=== PATIENT | male | born 1960 | race Caucasian/White ===

== ENCOUNTER 2018-02-16 19:01 | Emergency (ER) | payer BC ==
[2018-02-16 20:15] LABS: ABSOLUTE LYMPHOCYTES (AUTO) 1.3 10^3/uL (0.5-4.7); ABSOLUTE MONOCYTES (AUTO) 0.3 10^3/uL (0.1-1.4); BASOPHILS % (AUTO) 0.2 % (0-2); HEMATOCRIT 40.6 % (37.9-51.0); HEMOGLOBIN 13.7 g/dL (13.5-17.0); LYMPHOCYTES % (AUTO) 13.9 % (13-45); MEAN CORPUSCULAR HEMOGLOBIN 29.1 pg (27.0-33.4); MEAN CORPUSCULAR HGB CONC 33.7 g/dL (32.0-36.0); MEAN CORPUSCULAR VOLUME 86 fl (80-97); MONOCYTES % (AUTO) 3.3 % (3-13); PLATELET COUNT 331 10^3/uL (150-450); RED BLOOD COUNT 4.71 10^6/uL (4.35-5.55); RED CELL DISTRIBUTION WIDTH 14.2 % (11.5-14.0); SEGMENTED NEUTROPHILS % (AUTO) 82.6 % (42-78); TOTAL CELLS COUNTED % (AUTO) 100 %; WHITE BLOOD COUNT 9.7 10^3/uL (4.0-10.5)
[2018-02-16 20:28] LABS: ALANINE AMINOTRANSFERASE 42 U/L (21-72); ALBUMIN 4.3 g/dL (3.5-5.0); ALKALINE PHOSPHATASE 83 U/L (38-126); ANION GAP 11 (5-19); ASPARTATE AMINO TRANSFERASE 54 U/L (17-59); BILIRUBIN,DIRECT 0.4 mg/dL (0.0-0.4); BILIRUBIN,TOTAL 0.6 mg/dL (0.2-1.3); BLOOD UREA NITROGEN 27 mg/dL (7-20); CALCIUM 9.1 mg/dL (8.4-10.2); CARBON DIOXIDE 29 mmol/L (22-30); CHLORIDE 103 mmol/L (98-107); GLUCOSE 108 mg/dL (75-110); POTASSIUM 4.5 mmol/L (3.6-5.0); SODIUM 142.7 mmol/L (137-145); TOTAL PROTEIN 7.5 g/dL (6.3-8.2)
--- NOTE | 2018-02-16 20:43 | RADIOLOGY REPORT (SQ) ---
EXAM DESCRIPTION: ABDOMEN 2 VIEWS COMPLETED DATE/TIME: 02/16/2018 8:30 pm REASON FOR STUDY: abdominal pain COMPARISON: None. NUMBER OF VIEWS: Two views. TECHNIQUE: Supine and erect/decubitus radiographic images of the abdomen acquired. LIMITATIONS: None. FINDINGS: FREE AIR: None. No abnormal gas collections. LUNG BASES: Clear. BOWEL GAS PATTERN: Gas scattered throughout the colon. Scattered air-fluid levels, also predominantl y within colon. No suggestion of small bowel obstruction. No significant stool retention. CALCIFICATIONS: No suspicious calcifications. SOFT TISSUES: No gross mass or suggestion of organomegaly. HARDWARE: None in the abdomen. BONES: No acute fracture. No worrisome bone lesions. OTHER: No other significant finding. IMPRESSION: 1. Scattered gas and fluid predominantly throughout the colon. No suggestion of small b owel obstruction. TECHNICAL DOCUMENTATION: JOB ID: [id number] [employer]- All Rights Reserved Reading location - IP/workstation name: [email or web address]
[2018-02-16] MEDS ORDERED: CIPROFLOXACIN HCL 500 MG TABLET PO ONE (21:14)
--- NOTE | 2018-02-16 21:16 | ER Document Report ---
ED General - General Chief Complaint: Bloody Stools Stated Complaint: BLOOD IN STOOL Time Seen by Provider: 02/16/18 19:44 Notes: Patient is a 57 year old male without chronic medical problems, no use of anti- coagulation who presents with 2 bloody bowel movements over the past 12 hours. Patient reports that he had loose stool mixed in with large quantities of blood on 2 separate occasions today prompting him to come to the emergency department. He notes an associated generalized, intermittent, cramping abdominal pain. He denies that anything seems to improve or worsen his symptoms. He denies any history of bloody diarrhea in the past. He has not seen his primary doctor regarding today's concerns. He notes multiple people have been sick with diarrhea in his home but nobody else has had bloody diarrhea. He also notes that he was started on clindamycin 2 days ago for an infected left elbow bursitis which has now mostly resolved but he does continue take the antibiotics at this time. TRAVEL OUTSIDE OF THE [place] IN LAST 30 DAYS: No - Related Data Allergies/Adverse Reactions: No Known Allergies Allergy (Verified 02/16/18 19:02) Past Medical History - General Information source: Patient - Social History Smoking Status: Never Smoker Frequency of alcohol use: None Drug Abuse: None Lives with: Spouse/Significant other Family History: Reviewed & Not Pertinent - Past Medical History Cardiac Medical History: Reports: Hx Hypercholesterolemia Denies: Hx Coronary Artery Disease, Hx Heart Attack, Hx Hypertension Pulmonary Medical History: Reports: Hx Pneumonia - 5-6 years ago Denies: Hx Asthma, Hx Bronchitis, Hx COPD Neurological Medical History: Denies: Hx Cerebrovascular Accident, Hx Seizures GI Medical History: Reports: Hx Hiatal Hernia Musculoskeltal Medical History: Reports Hx Arthritis Past Surgical History: Reports: Hx Abdominal Surgery - colon resection, Hx Bowel Surgery, Hx Kidney (Renal Surgery) - L kidney, Hx Orthopedic Surgery - neck, L ankle - Immunizations Hx Diphtheria, Pertussis, Tetanus Vaccination: Yes Review of Systems - Review of Systems Notes: Constitutional: Negative for fever. HENT: Negative for sore throat. Eyes: Negative for visual changes. Cardiovascular: Negative for chest pain. Respiratory: Negative for shortness of breath. Gastrointestinal: Positive for abdominal cramping and bloody diarrhea Genitourinary: Negative for dysuria. Musculoskeletal: Negative for back pain. Skin: Negative for rash. Neurological: Negative for headaches, weakness or numbness. 10 point ROS negative except as marked above and in HPI. Physical Exam - Vital signs Vitals: Temp Pulse Resp BP Pulse Ox 98.0 F 73 16 121/87 H 98 02/16/18 19:21 18 19:21 18 19:21 18 19:21 02/16/18 19:21 Interpretation: Normal Notes: PHYSICAL EXAMINATION: GENERAL: Well-appearing, well-nourished and in no acute distress. HEAD: Atraumatic, normocephalic. EYES: Pupils equal round and reactive to light, extraocular movements intact, sclera anicteric, conjunctiva are normal. ENT: nares patent, oropharynx clear without exudates. Moderately dry mucous membranes. NECK: Normal range of motion, supple without lymphadenopathy LUNGS: Breath sounds clear to auscultation bilaterally and equal. No wheezes rales or rhonchi. HEART: Regular rate and rhythm without murmurs ABDOMEN: Soft, nontender, normoactive bowel sounds. No guarding, no rebound. No masses appreciated. Rectal: Bright red blood on digital rectal examination with a mixture of brown stool. EXTREMITIES: Normal range of motion, no pitting or edema. No cyanosis. NEUROLOGICAL: No focal neurological deficits. Moves all extremities spontaneously and on command. PSYCH: Normal mood, normal affect. SKIN: Warm, Dry, normal turgor, no rashes or lesions noted. Course - Re-evaluation Re-evalutation: 02/16/18 21:14 Patient presents with 2 bloody bowel movements mixed with loose stool since earlier this morning. He is otherwise very well in appearance, no focal abdominal tenderness rebound or guarding in any location. Rectal examination does show bright red blood per rectum. Initial hemoglobin is within normal limits. No tachycardia or hypotension suggest significant blood loss and patient is only had 2 bowel movements in the past 12 hours. Given the absence of any localized abdominal pain low clinical suspicion for acute diverticulitis , regional colitis although an infectious colitis versus possible antibiotic induced diarrhea as patient was recently started on clindamycin on the differential. Diverticular bleeding versus polyp bleeding also are considerations. Given the patient has bright red blood on rectal examination he will remain in the emergency department had a recheck CBC to ensure that he has not had any significant bleeding that would warrant a hospitalization. Will also send a stool for culture and C. difficile testing. 02/16/18 23:58 Patient has not had any additional bowel movements so no stool studies can be sent. His repeat hemoglobin 4 hours after the initial shows a drop of less than one-point of hemoglobin. Patient has remained otherwise hemodynamically within normal limits current heart rate 75, blood pressure 115/81. I will empirically treat the patient with a short course of ciprofloxacin in case this is an infectious colitis causing associated dysentery. I have emphasized with the patient that he needs to urgently follow up with his primary care doctor and a GI physician for a colonoscopy. At this time will discharge with return precautions and follow-up recommendations. Verbal discharge instructions given a the bedside and opportunity for questions given. Medication warnings reviewed. Patient is in agreement with this plan and has verbalized understanding of return precautions and the need for primary care follow-up in the next 24-72 hours. - Vital Signs Vital signs: Temp Pulse Resp BP Pulse Ox 98.0 F 73 14 113/85 97 02/16/18 19:21 02/16/18 19:21 02/16/18 22:01 02/16/18 22:01 02/16/18 22:01 - Laboratory Result Diagrams: 02/16/18 23:38 02/16/18 19:49 Laboratory results interpreted by me: 02/16/18 02/16/18 02/16/18 19:49 19:49 23:38 WBC 10.9 H Hgb 12.9 L Hct 37.4 L RDW 14.2 H 14.1 H Seg Neutrophils % 82.6 H BUN 27 H - Diagnostic Test Radiology reviewed: Image reviewed, Reports reviewed Radiology results interpreted by me: 02/16/18 23:59 Two-view abdomen: No evidence of obstruction or perforation Discharge - Discharge Clinical Impression: Bloody diarrhea, Abdominal cramping Condition: Good Disposition: HOME, SELF-CARE Additional Instructions: Your symptoms may be due to an infection or bleeding from diverticulosis. Your blood counts have remained acceptably stable during your time here in the emergency department and your vitals have remained within normal limits. Please return to the emergency department immediately if you repeated large bloody bowel movements, your abdominal pain worsens, you have persistent vomiting, or have any other symptoms that are worrisome to you. Prescriptions: Ciprofloxacin HCl [Cipro 500 mg Tablet] 500 mg PO BID #6 tablet Referrals: ERNIE CHRIS MD [ACTIVE STAFF] - Follow up tomorrow VIRGINIA ECHEVARRIA FNP [Primary Care Provider] - Follow up tomorrow
[2018-02-16 23:47] LABS: HEMATOCRIT 37.4 % (37.9-51.0); HEMOGLOBIN 12.9 g/dL (13.5-17.0); MEAN CORPUSCULAR HEMOGLOBIN 29.4 pg (27.0-33.4); MEAN CORPUSCULAR HGB CONC 34.6 g/dL (32.0-36.0); MEAN CORPUSCULAR VOLUME 85 fl (80-97); PLATELET COUNT 313 10^3/uL (150-450); RED CELL DISTRIBUTION WIDTH 14.1 % (11.5-14.0); WHITE BLOOD COUNT 10.9 10^3/uL (4.0-10.5)
[2018-02-17 00:26] VITALS: BP 112/91
== END 2018-02-17 00:26 | disposition home or self-care (01) ==
LOC: ER 19:01
DX: K92.1 Melena (principal); R19.7 Diarrhea, unspecified; R10.9 Unspecified abdominal pain
CPT/HCPCS: 36415; 74019; 80053; 85025; 85027; 99284

== ENCOUNTER 2020-05-06 18:15 | Observation (INO) | payer BC ==
[2020-05-06] MEDS ORDERED: ASPIRIN 81 MG TABLET, CHEWABLE PO ONE (19:02)
--- NOTE | 2020-05-06 19:06 | ER Document Report ---
ED Medical Screen (RME) - General Chief Complaint: Chest Pain Stated Complaint: CHEST PAIN Time Seen by Provider: 05/06/20 18:55 Primary Care Provider: VIRGINIA ECHEVARRIA FNP [Primary Care Provider] - Follow up as needed Mode of Arrival: Ambulatory Information source: Patient Notes: HPI; 59-year-old male presents the emergency room complaining of nagging chest tightness to the left side of his chest for the past 4 days. Denies any nausea, vomiting, no diaphoresis. Not taking any medications for symptoms. No trauma or injury. No heavy lifting, no previous cardiac history PE: Alert and oriented x3. Lungs: Clear to auscultation without rales, rhonchi, wheezes. Heart: Regular rate and rhythm without murmurs, rubs, gallops. Chest wall not tender to palpation. I have greeted and performed a rapid initial assessment of this patient. A comprehensive ED assessment and evaluation of the patient, analysis of test results and completion of the medical decision making process will be conducted by additional ED providers. I have specifically instructed the patient or family members with the patient to immediately return to any nursing staff should anything change in the patient's condition or with their chief complaint. TRAVEL OUTSIDE OF THE [place] IN LAST 30 DAYS: No - Related Data Allergies/Adverse Reactions: No Known Allergies Allergy (Verified 02/16/18 19:02) Past Medical History - Social History Frequency of alcohol use: Occasional - Past Medical History Cardiac Medical History: Reports: Hx Hypercholesterolemia Denies: Hx Coronary Artery Disease, Hx Heart Attack, Hx Hypertension Pulmonary Medical History: Reports: Hx Pneumonia - 5-6 years ago Denies: Hx Asthma, Hx Bronchitis, Hx COPD Neurological Medical History: Denies: Hx Cerebrovascular Accident, Hx Seizures Renal/ Medical History: Denies: Hx Peritoneal Dialysis GI Medical History: Reports: Hx Hiatal Hernia Musculoskeltal Medical History: Reports Hx Arthritis Past Surgical History: Reports: Hx Abdominal Surgery - colon resection, Hx Bowel Surgery, Hx Kidney (Renal Surgery) - L kidney, Hx Orthopedic Surgery - neck, L ankle - Immunizations Hx Diphtheria, Pertussis, Tetanus Vaccination: Yes Physical Exam - Vital signs Vitals: Temp Pulse Resp BP Pulse Ox 98.3 F 69 16 122/85 98 05/06/20 18:24 05/06/20 18:24 05/06/20 18:24 05/06/20 18:24 05/06/20 18:24 Course - Vital Signs Vital signs: Temp Pulse Resp BP Pulse Ox 98.3 F 69 16 122/85 98 05/06/20 18:24 05/06/20 18:24 05/06/20 18:24 05/06/20 18:24 05/06/20 18:24 Doctor's Discharge - Discharge Referrals: VIRGINIA ECHEVARRIA FNP [Primary Care Provider] - Follow up as needed
[2020-05-06 19:31] LABS: ABSOLUTE EOSINOPHILS # (AUTO) 0.4 10^3/uL (0.0-0.6); ABSOLUTE MONOCYTES (AUTO) 0.6 10^3/uL (0.1-1.4); ABSOLUTE NEUT (AUTO) 4.3 10^3/uL (1.7-8.2); BASOPHILS % (AUTO) 0.6 % (0-2); EOSINOPHILS % (AUTO) 5.4 % (0-6); HEMATOCRIT 42.6 % (37.9-51.0); HEMOGLOBIN 14.7 g/dL (13.5-17.0); LYMPHOCYTES % (AUTO) 27.7 % (13-45); MEAN CORPUSCULAR HGB CONC 34.5 g/dL (32.0-36.0); MEAN CORPUSCULAR VOLUME 87 fl (80-97); MONOCYTES % (AUTO) 7.6 % (3-13); PLATELET COUNT 223 10^3/uL (150-450); SEGMENTED NEUTROPHILS % (AUTO) 58.7 % (42-78); TOTAL CELLS COUNTED % (AUTO) 100 %; WHITE BLOOD COUNT 7.3 10^3/uL (4.0-10.5)
--- NOTE | 2020-05-06 19:35 | RADIOLOGY REPORT (SQ) ---
EXAM DESCRIPTION: CHEST 2 VIEWS IMAGES COMPLETED DATE/TIME: 05/06/2020 7:25 pm REASON FOR STUDY: chest pain COMPARISON: Two-view chest 01/04/2014, 10/13/2013 EXAM PARAMETERS: NUMBER OF VIEWS: two views TECHNIQUE: Digital Frontal and Lateral radiographic views of the chest acquired. RADIATION DOSE: NA LIMITATIONS: none FINDINGS: LUNGS AND PLEURA: No opacities, masses or pneumothorax. No pleural effusion. MEDIASTINUM AND HILAR STRUCTURES: No masses or contour abnormalities. HEART AND VASCULAR STRUCTURES: Heart normal size. No evidence for failure. BONES: No acute findings. HARDWARE: None in the chest. OTHER: No other significant finding. IMPRESSION: NO ACUTE RADIOGRAPHIC FINDING IN THE CHEST. TECHNICAL DOCUMENTATION: JOB ID: [id number] [employer]- All Rights Reserved Reading location - IP/workstation name: [email or web address]
[2020-05-06 19:52] LABS: ALBUMIN 4.2 g/dL (3.5-5.0); ALKALINE PHOSPHATASE 92 U/L (38-126); ASPARTATE AMINO TRANSFERASE 27 U/L (17-59); BILIRUBIN,TOTAL 0.8 mg/dL (0.2-1.3); BLOOD UREA NITROGEN 19 mg/dL (7-20); CALCIUM 8.6 mg/dL (8.4-10.2); CARBON DIOXIDE 29 mmol/L (22-30); CREATINE KINASE 131 U/L (55-170); GLUCOSE 88 mg/dL (75-110)
[2020-05-06 19:58] LABS: CHLORIDE 104 mmol/L (98-107)
[2020-05-06 20:00] LABS: ANION GAP 4 (5-19)
[2020-05-06 20:02] LABS: CREATINE KINASE MB 1.68 ng/mL (<4.55)
[2020-05-06 20:03] LABS: TROPONIN I < 0.012 ng/mL
--- NOTE | 2020-05-06 21:02 | EKG REPORT ---
SEVERITY:- ABNORMAL ECG - SINUS RHYTHM LAD, CONSIDER LEFT ANTERIOR FASCICULAR BLOCK : Confirmed by: Alphonso Martell MD 06-May-2020 21:01:43
--- NOTE | 2020-05-06 22:13 | ER Document Report ---
ED General - General Chief Complaint: Chest Pain Stated Complaint: CHEST PAIN Time Seen by Provider: 05/06/20 18:55 Primary Care Provider: VIRGINIA ECHEVARRIA FNP [Primary Care Provider] - Follow up as needed Mode of Arrival: Ambulatory Information source: Patient Notes: Patient is a 59-year-old male presenting to the emergency department chief complaint of chest pain patient states the chest pain is been ongoing for the past couple of days it actually woke him out of sleep initially. Patient states that he would just try and wait it out however today when the chest pain was at its worst patient complained of left neck and left shoulder pain diaphoresis and decrease in vision. Patient denies travel history trauma history sick contacts patient takes no medications does not smoke. TRAVEL OUTSIDE OF THE [place] IN LAST 30 DAYS: No - HPI Onset: Last week Onset/Duration: Persistent, Worse Quality of pain: Throbbing Severity: Moderate Pain Level: 4 Associated symptoms: Chest pain, Sweating, Weakness Exacerbated by: Denies Relieved by: Denies Similar symptoms previously: No Recently seen / treated by doctor: No - Related Data Allergies/Adverse Reactions: No Known Allergies Allergy (Verified 02/16/18 19:02) Past Medical History - General Information source: Patient - Social History Smoking Status: Never Smoker Chew tobacco use (# tins/day): No Frequency of alcohol use: Occasional Drug Abuse: None Lives with: Family Family History: Reviewed & Not Pertinent Patient has suicidal ideation: No Patient has homicidal ideation: No - Past Medical History Cardiac Medical History: Reports: Hx Hypercholesterolemia Denies: Hx Coronary Artery Disease, Hx Heart Attack, Hx Hypertension Pulmonary Medical History: Reports: Hx Pneumonia - 5-6 years ago Denies: Hx Asthma, Hx Bronchitis, Hx COPD Neurological Medical History: Denies: Hx Cerebrovascular Accident, Hx Seizures Renal/ Medical History: Denies: Hx Peritoneal Dialysis GI Medical History: Reports: Hx Hiatal Hernia Musculoskeletal Medical History: Reports Hx Arthritis Past Surgical History: Reports: Hx Abdominal Surgery - colon resection, Hx Bowel Surgery, Hx Kidney (Renal Surgery) - L kidney, Hx Orthopedic Surgery - neck, L ankle - Immunizations Hx Diphtheria, Pertussis, Tetanus Vaccination: Yes Review of Systems - Review of Systems Notes: REVIEW OF SYSTEMS: CONSTITUTIONAL : Denies fever, chills, or sweats. Denies recent illness. EENT: Denies eye, ear, throat, or mouth pain or symptoms. Denies nasal or sinus congestion. CARDIOVASCULAR: Per HPI RESPIRATORY: Denies cough, cold, or chest congestion. Denies shortness of breath, difficulty breathing, or wheezing. GASTROINTESTINAL: Denies abdominal pain. Denies nausea, vomiting, or diarrhea. Denies constipation. GENITOURINARY: Denies difficulty urinating, painful urination, burning, frequency, or blood in urine. MUSCULOSKELETAL: Denies neck or back pain or joint pain or swelling. SKIN: Denies rash or skin lesions. HEMATOLOGIC : Denies easy bruising or bleeding. NEUROLOGICAL: Denies altered mental status or loss of consciousness. Denies headache. Denies weakness or paralysis or loss of use of either side. Denies problems with gait or speech. Denies sensory or motor loss. PSYCHIATRIC: Denies suicidal or homicidal ideations 10 Systems are negative unless otherwise specified above Physical Exam - Vital signs Vitals: Temp Pulse Resp BP Pulse Ox 98.3 F 69 16 122/85 98 05/06/20 18:24 05/06/20 18:24 05/06/20 18:24 05/06/20 18:24 05/06/20 18:24 - Notes Notes: PHYSICAL EXAMINATION: GENERAL: Well-appearing, well-nourished and in no acute distress. HEAD: Atraumatic, normocephalic. EYES: Pupils equal round and reactive to light, extraocular movements intact, sclera anicteric, conjunctiva are normal. ENT: nares patent, oropharynx clear without exudates. Moist mucous membranes. NECK: Normal range of motion, supple without lymphadenopathy, no appreciable JVD LUNGS: Lungs clear to auscultation bilaterally and equal. No wheezes rales or rhonchi. HEART: Regular rate and rhythm without murmurs ABDOMEN: Soft, nontender, normal bowel sounds. No guarding, no rebound. No masses appreciated. EXTREMITIES: Active full range of motion, no pitting or edema. No cyanosis. 2+ pulses x4 NEUROLOGICAL: No focal neurological deficits. Moves all extremities spontaneously and on command. SKIN: Warm, Dry, and intact. Normal turgor, no rashes or lesions noted. Course - Re-evaluation Re-evalutation: 05/06/20 22:23 Patient still complaining of 3/5 chest pain however is resting comfortably otherwise normal respiratory rate. 07/09/20 22:35 Patient has received nitroglycerin 1 inch to the anterior chest wall. Patient has already received aspirin per protocol in triage. Chest x-ray demonstrates no acute findings. Currently waiting on laboratory results and repeat troponin. 05/07/20 00:24 Patient has been maintained in the emergency department on a alarm security or surveillance monitor wh ile present. Patient has been reevaluated several times while in the emergency department and no signs of decompensation have been noted. After evaluation of laboratory EKG and radiologic studies I see no signs of pneumonia, pneumothorax, acute myocardial infarction, dissection or pulmonary embolism, there are no signs of rib fractures, no signs of acute coronary syndrome or at this time I feel with the patient's symptoms and age as well as some indications of cardiac risk factors the patient should be admitted for serial enzymes and stress test. I have discussed these results with the patient answered all questions and patient is agreeable with admission and cardiac rule out. - Vital Signs Vital signs: Temp Pulse Resp BP Pulse Ox 98.3 F 69 16 122/85 99 05/06/20 18:24 05/06/20 18:24 05/06/20 18:24 05/06/20 18:24 05/06/20 21:58 - Laboratory Result Diagrams: 05/06/20 19:16 05/06/20 19:16 Laboratory results interpreted by me: 05/06/20 19:16 Anion Gap 4 L - Diagnostic Test Radiology reviewed: Reports reviewed - EKG Interpretation by [facility] EKG shows normal: Sinus rhythm Rate: Normal Rhythm: NSR - EKG is interpreted by id shows sinus rhythm rate of 74 bpm of note on the monitor the patient is ranging between 45 and 75 but obviously a normal sinus rhythm prior EKG from June 23, 2015 showed sinus bradycardia rate of 49 bpm. When compared to previous EKG there are: Changes noted Discharge - Discharge Clinical Impression: Chest pain Qualifiers: Chest pain type: precordial pain Qualified Code(s): R07.2 - Precordial pain Condition: Stable Disposition: ADMITTED OBSERVATION Admitting Provider: Julissa (Hospitalist) Unit Admitted: Telemetry Referrals: VIRGINIA ECHEVARRIA FNP [Primary Care Provider] - Follow up as needed
[2020-05-06] MEDS ORDERED: NITROGLYCERIN 2% OINTMENT 1 GM PACKET TP ONE (22:23)
[2020-05-07] MEDS ORDERED: MAGNESIUM HYDROXIDE SUSP 30 ML UDCUP PO PRN (00:55)
[2020-05-07] MEDS ORDERED: MAG HYDROX/AL HYDROX/SIMETH SUSP 30 ML UDCUP PO PRN (00:55)
[2020-05-07] MEDS ORDERED: ONDANSETRON HCL INJ/PF 4 MG/2 ML SDV IV PRN (00:55)
[2020-05-07] MEDS ORDERED: GUAIFENESIN SYRP 200 MG/10 ML UDC PO PRN (01:01)
[2020-05-07] MEDS ORDERED: HYDRALAZINE HCL INJ/PF 20 MG/1 ML SDV IV PRN (01:01)
[2020-05-07] MEDS ORDERED: LORAZEPAM INJ 2 MG/1 ML VIAL IV PRN (01:01)
[2020-05-07] MEDS ORDERED: MORPHINE SULFATE 10 MG/ML INJ IV PRN ×4 (01:01→01:57)
[2020-05-07] MEDS ORDERED: ACETAMINOPHEN 325 MG TABLET PO PRN (01:01)
--- NOTE | 2020-05-07 04:21 | PDOC H&P ---
History of Present Illness Admission Date/PCP: 05/07/2020 00:30 JOHN PEREZ Patient complains of: Chest pain History of Present Illness: ELIU COLLAZO III is a 59 year old male who presented to the emergency room with a one-week history of chest pain. He admits the sudden onset of a constant tightness in the left anterior chest 1 week ago waking him from sleep. The pain has been moderately severe since onset, but today begin to radiate into his left neck and left shoulder and this change was accompanied by diaphoresis and a sense of decreased vision. Chest pain has been associated with generalized weakness. He denies other accompanying or associated signs and symptoms. Denies prior similar episodes. He has not identified any aggravating or ameliorating factors for his chest pain. In the emergency room he was found to have an EKG which was negative for acute myocardial ischemia or injury. His initial troponins were within normal limits. He was subsequently admitted to observation status on the telemetry unit for further evaluation and treatment. Past Medical History Cardiac Medical History: Reports: Hyperlipidema Denies: Atrial Fibrillation, Coronary Artery Disease, Myocardial Infarction, Hypertension Pulmonary Medical History: Reports: Pneumonia - 5-6 years ago Denies: Asthma, Bronchitis, Chronic Obstructive Pulmonary Disease (COPD) EENT Medical History: Denies: Cataracts, Ears - Hearing aids Neurological Medical History: Denies: Hemorrhagic CVA, Ischemic CVA, Seizures Endocrine Medical History: Denies: Diabetes Mellitus Type 1, Diabetes Mellitus Type 2, Hyperthyroidism, Hypothyroidism, Obesity Renal/ Medical History: Reports: Other - Benign prostatic hyperplasia Denies: Chronic Kidney Disease, Nephrolithiasis Malignancy Medical History: Reports: None GI Medical History: Reports: Hiatal Hernia Denies: Cirrhosis, Crohn's Disease, Hepatitis, Peptic Ulcer Disease, Ulcerative Colitis Musculoskeltal Medical History: Reports: Arthritis Denies: Gout Skin Medical History: Reports: Other - Lipomas Denies: Eczema, Psoriasis Psychiatric Medical History: Denies: Alcohol Dependency, Substance Abuse, Tobacco Dependency Traumatic Medical History: Reports: None Hematology: Denies: Anemia, Bleeding Tendencies Infectious Medical History: Reports: Methicillin-Resistant Staph Aureus Past Surgical History Past Surgical History: Reports: Herniorrhaphy - Right inguinal, Orthopedic Surgery - neck, L ankle, Other - Lipoma removed right hip x2, colonoscopy Social History Information Source: Patient Lives with: Family Smoking Status: Never Smoker Electronic Cigarette use?: No Frequency of Alcohol Use: Social Hx Recreational Drug Use: No Drugs: None Hx Prescription Drug Abuse: No - Advance Directive Resuscitation Status: Full Code Surrogate healthcare decision maker:: Osman Seals Family History Family History: DM, Malignancy - Malignant melanoma. denies: CAD, Hypertension Parental Family History Reviewed: Yes Children Family History Reviewed: No Sibling(s) Family History Reviewed.: Yes Medication/Allergy Home Medications: Aspirin [Ecotrin] 81 mg PO QHS 06/23/15 Simvastatin [Zocor 5 mg Tablet] 5 mg PO QHS 06/23/15 Tamsulosin HCl [Flomax 0.4 mg Cap.sr] 0.4 mg PO QHS 06/23/15 Oxycodone HCl/Acetaminophen [Percocet 5-325 mg Tablet] 1 - 2 tab PO ASDIR PRN #15 tablet 06/30/15 Ciprofloxacin HCl [Cipro 500 mg Tablet] 500 mg PO BID #6 tablet 02/17/18 Allergies/Adverse Reactions: No Known Allergies Allergy (Verified 02/16/18 19:02) Review of Systems Constitutional: PRESENT: as per HPI, weakness. ABSENT: chills, fever(s) Eyes: PRESENT: as per HPI, other - Decreased vision. ABSENT: visual disturbances Ears: ABSENT: hearing changes, other - Ear pain Nose, Mouth, and Throat: ABSENT: headache(s), sore throat Cardiovascular: PRESENT: as per HPI, chest pain. ABSENT: dyspnea on exertion, palpitations Respiratory: ABSENT: cough, dyspnea Gastrointestinal: ABSENT: abdominal pain, constipation, diarrhea, nausea, vomiting Genitourinary: ABSENT: dysuria, hematuria Musculoskeletal: ABSENT: back pain, joint swelling Integumentary: PRESENT: as per HPI, diaphoresis. ABSENT: pruritus, rash Neurological: ABSENT: confusion, convulsions, focal weakness, memory loss, syncope Psychiatric: ABSENT: anxiety, depression Endocrine: ABSENT: cold intolerance, heat intolerance Hematologic/Lymphatic: ABSENT: easy bleeding, easy bruising Allergic/Immunologic: ABSENT: seasonal rhinorrhea Physical Exam Vital Signs: Temp Pulse Resp BP Pulse Ox 98.3 F 69 16 122/85 99 05/06/20 18:24 05/06/20 18:24 05/06/20 18:24 05/06/20 18:24 05/06/20 21:58 Intake & Output 05/05/20 05/06/2020 23:59 23:59 23:59 Weight 85.275 kg General appearance: PRESENT: no acute distress, cooperative, well-developed Head exam: PRESENT: atraumatic, normocephalic Eye exam: PRESENT: conjunctiva pink. ABSENT: conjunctival injection, scleral icterus Ear exam: PRESENT: normal external ear exam. ABSENT: bleeding, drainage Mouth exam: PRESENT: dry mucosa, neck supple Neck exam: ABSENT: thyromegaly, tracheal deviation Respiratory exam: PRESENT: clear to auscultation lia, symmetrical, unlabored Cardiovascular exam: PRESENT: RRR. ABSENT: clicks, gallop, rubs Pulses: PRESENT: normal radial pulses, normal dorsalis pedis pul Vascular exam: PRESENT: normal capillary refill. ABSENT: pallor GI/Abdominal exam: PRESENT: normal bowel sounds, soft Rectal exam: PRESENT: deferred Extremities exam: ABSENT: joint swelling, pedal edema Musculoskeletal exam: ABSENT: deformity, dislocation Neurological exam: PRESENT: alert, oriented to person, oriented to place, oriented to time, oriented to situation, CN II-XII grossly intact. ABSENT: motor sensory deficit Psychiatric exam: PRESENT: appropriate affect, normal mood Skin exam: PRESENT: dry, intact, warm. ABSENT: jaundice, rash, urticaria Results Laboratory Results: 05/06/20 19:16 05/06/20 19:16 05/06/20 05/06/20 19:16 19:16 WBC 7.3 RBC 4.90 Hgb 14.7 Hct 42.6 MCV 87 MCH 30.0 MCHC 34.5 RDW 14.0 Plt Count 223 Seg Neutrophils % 58.7 Sodium 137.3 Potassium 4.0 Chloride 104 Carbon Dioxide 29 Anion Gap 4 L BUN 19 Creatinine 1.04 Est GFR ( Amer) > 60 Glucose 88 Calcium 8.6 Total Bilirubin 0.8 AST 27 Alkaline Phosphatase 92 Total Protein 7.0 Albumin 4.2 05/06/20 05/06/20 05/06/20 19:16 19:16 22:15 Creatine Kinase 131 CK-MB (CK-2) 1.68 Troponin I < 0.012 < 0.012 Impressions: Chest X-Ray 05/06/20 19:01 IMPRESSION: NO ACUTE RADIOGRAPHIC FINDING IN THE CHEST. Assessment and Plan - Diagnosis (1) Chest pain Qualifiers: Chest pain type: precordial pain Qualified Code(s): R07.2 - Precordial pain Is this a current diagnosis for this admission?: Yes (2) Hyperlipidemia Qualifiers: Hyperlipidemia type: unspecified Qualified Code(s): E78.5 - Hyperlipidemia, unspecified Is this a current diagnosis for this admission?: Yes (3) Benign prostatic hyperplasia Is this a current diagnosis for this admission?: Yes (4) Mechanical venous thromboembolism (VTE) prophylaxis in place Is this a current diagnosis for this admission?: Yes - Plan Summary Summary: Patient is admitted to observation status on the telemetry unit where he will receive routine supportive home symptomatic cares. Dr. Ramirez has been consulted for cardiology and a Cardiolite stress test has been ordered for later this morning. Serial cardiac enzymes will be performed. A thyroid profile and a lipid profile will be obtained. CBCs, metabolic profiles, magnesium levels and additional laboratory and/or radiographic evaluations will be obtained as appropriate. Patient will use Nitrol 2% ointment 1 inch applied every 6 hours as initiated in the emergency room. Patient will have morphine sulfate 2 to 4 mg IV every 2 hours as needed for pain control. He will have Ativan 1 mg IV every 4 hours as needed for anxiety or restlessness. He will enjoy a cardiac diet after his stress test has been performed. - Time Time Spent with patient: 15-24 minutes Medications reviewed and adjusted accordingly: Yes Anticipated discharge: Home Within: within 24 hours - Inpatient Certification Based on my medical assessment, after consideration of the patient's comorbidities, presenting symptoms, or acuity I expect that the services needed warrant INPATIENT care.: No I certify that my determination is in accordance with my understanding of Medicare's requirements for reasonable and necessary INPATIENT services [42 CFR 412.3e].: No
[2020-05-07 05:01] LABS: TRIGLYCERIDES 49 mg/dL (<150)
[2020-05-07 05:09] LABS: CREATINE KINASE MB 1.21 ng/mL (<4.55)
[2020-05-07 05:10] LABS: CHOLESTEROL 210.04 mg/dL (0-200)
[2020-05-07 05:11] LABS: DIRECT LDL 146 mg/dL (<100); TROPONIN I < 0.012 ng/mL
[2020-05-07] MEDS: NITROGLYCERIN 2% OINTMENT 1 GM PACKET TP SCH ×2 (06:08→14:41)
[2020-05-07] MEDS: HEPARIN SOD (PORCINE) 5,000 UNIT/ML 1 ML VIAL SUBCUT SCH ×2 (06:15→14:42)
--- NOTE | 2020-05-07 08:02 | PDOC CONSULTATION ---
Consultation Consult Date: 05/07/20 Attending physician:: MONICA BARONE Provider Consulted: MALKA SAGASTUME Consult reason:: Chest pain History of Present Illness Admission Date/PCP: 05/07/20 01:05 JOHN PEREZ History of Present Illness: ELIU COLLAZO III is a 59 year old male without known medical problems and remote smoker who is consulted to our service for evaluation of chest pain. The patient had chest pain for 4 days, in a constant fashion, it was sharp in nature, localized to an area right above his left breast, made worse with strenuous physical activities, associated with diaphoresis and tunnel vision, with radiation to the left arm and neck but no palpitations, syncope, shortness of breath. He had been hemodynamically stable and without recurrence of his index chest pain since admission and ruled out for ACS with 3 sets of negative troponins. He feels well this morning and denies new symptoms. Physical exam on 05/07/2020: GENERAL: Pleasant and conversational. Oriented x3 with normal mood. Not in acute distress. Well groomed and well developed. HEENT: Normocephalic, atraumatic. Pupils equal. Sclerae anicteric. Oropha rynx moist. NECK: No JVD. No carotid bruits. LUNGS: Clear to auscultation bilaterally. Normal respiratory effort without the use of accessory muscles or intercostal retractions. CARDIOVASCULAR: Regular rate and rhythm, normal S1 and S2 without murmurs, rubs, or gallops. PMI not displaced. ABDOMEN: No masses or tenderness to palpation. No bruit. No splenomegaly or hepatomegaly. No abdominal aorta bruit noted. EXTREMITIES: No edema, no cyanosis, no clubbing. +2 pulses femoral and pedal pulses bilaterally. SKIN: No lesions or rashes. MUSCULOSKELETAL: No chest tenderness to palpation. NEUROLOGIC: Nonfocal. No gross sensory or motor deficits bilateral upper or lower extremities. Past Medical History Cardiac Medical History: Reports: Hyperlipidema Denies: Atrial Fibrillation, Coronary Artery Disease, Myocardial Infarction, Hypertension Pulmonary Medical History: Reports: Pneumonia - 5-6 years ago Denies: Asthma, Bronchitis, Chronic Obstructive Pulmonary Disease (COPD) EENT Medical History: Denies: Cataracts, Ears - Hearing aids Neurological Medical History: Denies: Hemorrhagic CVA, Ischemic CVA, Seizures Endocrine Medical History: Denies: Diabetes Mellitus Type 1, Diabetes Mellitus Type 2, Hyperthyroidism, Hypothyroidism, Obesity Renal/ Medical History: Reports: Other - Benign prostatic hyperplasia Denies: Chronic Kidney Disease, Nephrolithiasis Malignancy Medical History: Reports: None GI Medical History: Reports: Hiatal Hernia Denies: Cirrhosis, Crohn's Disease, Hepatitis, Peptic Ulcer Disease, Ulcerative Colitis Musculoskeltal Medical History: Reports: Arthritis Denies: Gout Skin Medical History: Reports: Other - Lipomas Denies: Eczema, Psoriasis Psychiatric Medical History: Denies: Alcohol Dependency, Depression, Substance Abuse, Tobacco Dependency Traumatic Medical History: Reports: None Hematology: Denies: Anemia, Bleeding Tendencies Infectious Medical History: Reports: None, Methicillin-Resistant Staph Aureus Past Surgical History Past Surgical History: Reports: Herniorrhaphy - Right inguinal, Orthopedic Surgery - neck, L ankle, Other - Lipoma removed right hip x2, colonoscopy Social History Lives with: Family Smoking Status: Never Smoker Cigarettes Packs Per Day: 0.2 Electronic Cigarette use?: No Number of Years Smokin Last Time Smoked: 1984 Frequency of Alcohol Use: Social Hx Recreational Drug Use: No Drugs: None Hx Prescription Drug Abuse: No - Advance Directive Resuscitation Status: Full Code Family History Family History: DM, Malignancy - Malignant melanoma. denies: CAD, Hypertension Parental Family History Reviewed: Yes Children Family History Reviewed: Yes Sibling(s) Family History Reviewed.: Yes Medication/Allergy Home Medications: Aspirin [Ecotrin] 81 mg PO QHS 06/23/15 Simvastatin [Zocor 5 mg Tablet] 5 mg PO QHS 06/23/15 Tamsulosin HCl [Flomax 0.4 mg Cap.sr] 0.4 mg PO QHS 06/23/15 Oxycodone HCl/Acetaminophen [Percocet 5-325 mg Tablet] 1 - 2 tab PO ASDIR PRN #15 tablet 06/30/15 Ciprofloxacin HCl [Cipro 500 mg Tablet] 500 mg PO BID #6 tablet 02/17/18 Allergies/Adverse Reactions: No Known Allergies Allergy (Verified 02/16/18 19:02) Physical Exam Vital Signs: Temp Pulse Resp BP Pulse Ox 97.5 F 50 L 16 100/65 99 05/07/20 04:19 05/07/20 04:19 05/07/20 04:19 05/07/20 04:19 05/07/20 04:19 Intake & Output 05/06/20 05/07/2020 06:59 06:59 06:59 Intake Total 0 Balance 0 Weight 83.6 kg Results Laboratory Results: 05/06/20 19:16 05/06/20 19:16 05/06/20 05/06/20 05/07/20 19:16 19:16 03:52 WBC 7.3 RBC 4.90 Hgb 14.7 Hct 42.6 MCV 87 MCH 30.0 MCHC 34.5 RDW 14.0 Plt Count 223 Seg Neutrophils % 58.7 Sodium 137.3 Potassium 4.0 Chloride 104 Carbon Dioxide 29 Anion Gap 4 L BUN 19 Creatinine 1.04 Est GFR ( Amer) > 60 Glucose 88 Calcium 8.6 Total Bilirubin 0.8 AST 27 Alkaline Phosphatase 92 Total Protein 7.0 Albumin 4.2 Triglycerides 49 Cholesterol 210.04 H LDL Cholesterol Direct 146 H VLDL Cholesterol 10.0 HDL Cholesterol 49 TSH 05/07/20 03:52 WBC RBC Hgb Hct MCV MCH MCHC RDW Plt Count Seg Neutrophils % Sodium Potassium Chloride Carbon Dioxide Anion Gap BUN Creatinine Est GFR ( Amer) Glucose Calcium Total Bilirubin AST Alkaline Phosphatase Total Protein Albumin Triglycerides Cholesterol LDL Cholesterol Direct VLDL Cholesterol HDL Cholesterol TSH 4.40 05/06/20 05/06/20 05/06/20 19:16 19:16 22:15 Creatine Kinase 131 CK-MB (CK-2) 1.68 Troponin I < 0.012 < 0.012 05/07/20 05/07/20 03:52 03:52 Creatine Kinase 102 CK-MB (CK-2) 1.21 Troponin I < 0.012 Impressions: Chest X-Ray 05/06/20 19:01 IMPRESSION: NO ACUTE RADIOGRAPHIC FINDING IN THE CHEST. 05/06/20 19:16 05/06/20 19:16 MCV 87 fl (80-97) 05/06/20 19:16 MCH 30.0 pg (27.0-33.4) 05/06/20 19:16 MCHC 34.5 g/dL (32.0-36.0) 05/06/20 19:16 RDW 14.0 % (11.5-14.0) 05/06/20 19:16 Seg Neutrophils % 58.7 % (42-78) 05/06/20 19:16 Chloride 104 mmol/L (98-107) 05/06/20 19:16 Carbon Dioxide 29 mmol/L (22-30) 05/06/20 19:16 Anion Gap 4 (5-19) L 05/06/20 19:16 Est GFR ( Amer) > 60 (>60) 05/06/20 19:16 Glucose 88 mg/dL (75-110) 05/06/20 19:16 Calcium 8.6 mg/dL (8.4-10.2) 05/06/20 19:16 Total Bilirubin 0.8 mg/dL (0.2-1.3) 05/06/20 19:16 AST 27 U/L (17-59) 05/06/20 19:16 Alkaline Phosphatase 92 U/L (38-126) 05/06/20 19:16 Total Protein 7.0 g/dL (6.3-8.2) 05/06/20 19:16 Albumin 4.2 g/dL (3.5-5.0) 05/06/20 19:16 Triglycerides 49 mg/dL (<150) 05/07/20 03:52 Cholesterol 210.04 mg/dL (0-200) H 05/07/20 03:52 LDL Cholesterol Direct 146 mg/dL (<100) H 05/07/20 03:52 VLDL Cholesterol 10.0 mg/dL (10-31) 05/07/20 03:52 HDL Cholesterol 49 mg/dL (>40) 05/07/20 03:52 TSH 4.40 uIU/mL (0.47-4.68) 05/07/20 03:52 05/06/20 05/06/20 05/06/20 19:16 19:16 22:15 Creatine Kinase 131 CK-MB (CK-2) 1.68 Troponin I < 0.012 < 0.012 05/07/20 05/07/20 03:52 03:52 Creatine Kinase 102 CK-MB (CK-2) 1.21 Troponin I < 0.012 Current Medication List Generic Name Dose Route Start Last Admin Trade Name Freq PRN Reason Stop Dose Admin Acetaminophen 650 mg 05/07/20 01:01 Tylenol 325 Mg Tablet PO 06/06/20 01:00 Q4HP PRN For headache, pain or fever Al Hydrox/Mg Hydrox/Simethicone 30 ml 05/07/20 00:55 Maalox Plus Susp 30 Udcup PO 06/06/20 00:54 Q6HP PRN [facility] Docusate Sodium 100 mg 05/07/20 10:00 Colace 100 Mg Capsule PO 06/06/20 09:59 BID [facility] Famotidine 20 mg 05/07/20 10:00 Pepcid 20 Mg Tablet PO 06/06/20 09:59 Q12 [facility] Guaifenesin 200 mg 05/07/20 01:01 Robitussin Syrup 200 Mg/10 Ml Ud Cup PO 06/06/20 01:00 Q4HP PRN COUGH Heparin Sodium (Porcine) 5,000 unit 05/07/20 06:00 05/07/20 06:15 Heparin Inj 5,000 Units/Ml 1 Ml Vial SUBCUT 06/06/20 05:59 5,000 unit Q8 [facility] Administration Hydralazine HCl 20 mg 05/07/20 01:01 Apresoline Inj/Pf 20 Mg/1 Ml Sdv IV 06/06/20 01:00 Q4HP PRN Give For Sbp > 160 / Dbp > 100 Lorazepam 1 mg 05/07/20 01:01 Ativan Inj 2 Mg/1 Ml Vial IV 05/14/20 01:00 Q4HP PRN ANXIETY/AGITATION Magnesium Hydroxide 30 ml 05/07/20 00:55 Milk Of Magnesia 30 Ml Udcup PO 06/06/20 00:54 DAILYP PRN FOR CONSTIPATION Morphine Sulfate 2 mg 05/07/20 01:57 05/07/20 02:02 Morphine 10 Mg/Ml Inj IV 05/14/20 01:56 2 mg Q2HP PRN Administration PAIN SCALE OF 2 Morphine Sulfate 3 mg 05/07/20 01:57 Morphine 10 Mg/Ml Inj IV 05/14/20 01:56 Q2HP PRN FOR PAIN SCALE 3-4 Morphine Sulfate 4 mg 05/07/20 01:57 Morphine 10 Mg/Ml Inj IV 05/14/20 01:56 Q2HP PRN PAIN SCALE OF 5 Nitroglycerin 1 gm 05/07/20 06:00 05/07/20 06:08 Nitrol 2% Ointment 1gm Packet TP 06/06/20 05:59 Not Given Q6 [facility] Ondansetron HCl 4 mg 05/07/20 00:55 Zofran Inj/Pf 4 Mg/2 Ml Sdv IV 08/09/20 00:54 Q4HP PRN FOR NAUSEA/VOMITING Sodium Chloride 2.5 ml 05/07/20 06:00 05/07/20 06:16 Saline Flush 2.5 Ml Monoject Prefil Syrin IV 06/06/20 05:59 2.5 ml Q8 PAULINE Administration Discontinued Medications Generic Name Dose Route Start Last Admin Trade Name Freq PRN Reason Stop Dose Admin Aspirin 324 mg 05/06/20 19:02 05/06/20 19:43 Aspirin 81 Mg Chewable Tablet PO 05/06/20 19:03 324 mg NOW ONE Administration Morphine Sulfate 2 - 4 mg 05/07/20 01:01 Morphine 10 Mg/Ml Inj IV 05/14/20 01:00 Q2HP PRN See protocol Protocol Nitroglycerin 1 gm 05/06/20 22:23 05/06/20 22:34 Nitrol 2% Ointment 1gm Packet TP 05/06/20 22:24 1 gm NOW ONE Administration Assessment & Plan - Diagnosis (1) Chest pain Qualifiers: Chest pain type: precordial pain Qualified Code(s): R07.2 - Precordial pain Plan: The patient has no known medical problems and has remained asymptomatic since admission with 3 sets of negative troponins. His chest pain is atypical however a stress test had been already ordered and the patient has been prepped for it. Recommendations: -Continue with current medical management. -Proceed with stress test as ordered by the hospitalist service. -Echocardiogram to assess for structural heart disease. -Further recommendations pending results of above testing.
[2020-05-07] MEDS ORDERED: DEXTROSE 40% GEL 15 GM TUBE PO PRN ×2 (08:53)
[2020-05-07] MEDS ORDERED: GLUCAGON,HUMAN RECOMB 1 MG INJ SUBCUT PRN (08:53)
[2020-05-07] MEDS ORDERED: DEXTROSE 50%-WATER 25 GM/50 ML DISP.SYRIN IV PRN ×2 (08:53)
[2020-05-07] MEDS ORDERED: FAMOTIDINE 20 MG TABLET PO SCH (10:00)
[2020-05-07] MEDS ORDERED: DOCUSATE SODIUM 100 MG CAPSULE PO SCH (10:00)
--- NOTE | 2020-05-07 10:19 | DRAGON STRESS TEST REPORT ---
Name: Shaun Feliz : Sep Date: The patient underwent a stress/rest, single isotope SPECT Imaging with exercise stress and gated SPECT imaging for evaluation of atypical chest pain. The patient underwent treadmill exercise using the Frederick protocol, completing 10:30 minutes and completing an estimated workload of 13.4 metabolic equivalents (METS). The test was terminated due to fatigue. The heart rate was 60 beats per minute at baseline and increased to 160 beats at peak exercise, which was 100% of the maximum predicted heart rate. The rest blood pressure was 101/76 mm/Hg and increased decreased to 153/84 mm/Hg, which is a normal response. The patient complained of no symptoms during the procedure. The resting electrocardiogram demonstrated NSR and did not show ST-segment changes consistent with ischemia during exertion. Myocardial perfusion imaging was performed at rest following the injection of 13.73 mCi of sestamibi. At peak exercise, the patient was injected with 39.3 mCi of sestamibi and exercise was continued for 1minute(s). Gating post-stress tomographic imaging was performed 60 minutes after stress. Findings The overall quality of the study is good. Raw images demonstrate no significant artifacts. Left ventricular cavity is noted to be normal on the rest and stress studies. Resting SPECT images demonstrate a small, of moderate intensity perfusion defect in the inferior wall. The stress images reveal homogeneous tracer distribution throughout the myocardium. Gated SPECT imaging reveals normal myocardial thickening and wall motion. The left ventricular ejection fraction was calculated to be 51% Impression -Myocardial perfusion imaging is normal with the defect in the inferior wall in the resting images consistent with artifact. -There is no scintigraphic evidence of ischemia or infarct. -Overall left ventricular systolic function was normal without wall motion abnormalities. -There are no prior studies for comparison. MTDD
--- NOTE | 2020-05-07 10:22 | Progress Note ---
Provider Note Provider Note: The patient underwent exercise nuclear stress test this morning with normal results and no complications. He did have an episode of presyncope while at work without recurrence. Please arrange for outpatient follow up with my partner, Dr. Carey with [facility], .
[2020-05-07 12:03] LABS: CREATINE KINASE MB 1.11 ng/mL (<4.55); TROPONIN I < 0.012 ng/mL
--- NOTE | 2020-05-07 16:46 | PDOC DISCHARGE SUMMARY ---
Impression - Admit/DC Date/PCP Admission Date/Primary Care Provider: 05/07/20 01:05 JOHN PEREZ Discharge Date: 05/07/20 - Discharge Diagnosis (1) Chest pain Is this a current diagnosis for this admission?: Yes (2) Benign prostatic hyperplasia Is this a current diagnosis for this admission?: Yes (3) Hyperlipidemia Is this a current diagnosis for this admission?: Yes (4) Mechanical venous thromboembolism (VTE) prophylaxis in place Is this a current diagnosis for this admission?: Yes - Assessment Summary: Patient is admitted to observation status on the telemetry unit where he will receive routine supportive home symptomatic cares. Dr. Ramirez has been consulted for cardiology and a Cardiolite stress test has been ordered for later this morning. Serial cardiac enzymes will be performed. A thyroid profile and a lipid profile will be obtained. CBCs, metabolic profiles, magnesium levels and additional laboratory and/or radiographic evaluations will be obtained as appropriate. Patient will use Nitrol 2% ointment 1 inch applied every 6 hours as initiated in the emergency room. Patient will have morphine sulfate 2 to 4 mg IV every 2 hours as needed for pain control. He will have Ativan 1 mg IV every 4 hours as needed for anxiety or restlessness. He will enjoy a cardiac diet after his stress test has been performed. - Additional Information Resuscitation Status: Full Code Discharge Diet: As Tolerated, Other (Comments) - Low-cholesterol, low-fat Discharge Activity: Activity As Tolerated Referrals: VIRGINIA ECHEVARRIA FNP [Primary Care Provider] - Follow up as needed JUANA CROWELL MD [ACTIVE PROVISIONAL STAFF] - Prescriptions: Atorvastatin Calcium [Lipitor 20 mg Tablet] 20 mg PO QHS #30 tablet Home Medications: Atorvastatin Calcium [Lipitor 20 mg Tablet] 20 mg PO QHS #30 tablet 05/07/20 History of Present Illiness History of Present Illness: According to admitting provider: ELIU COLLAZO III is a 59 year old male who presented to the emergency room with a one-week history of chest pain. He admits the sudden onset of a constant tightness in the left anterior chest 1 week ago waking him from sleep. The pain has been moderately severe since onset, but today begin to radiate into his left neck and left shoulder and this change was accompanied by diaphoresis and a sense of decreased vision. Chest pain has been associated with generalized weakness. He denies other accompanyi ng or associated signs and symptoms. Denies prior similar episodes. He has not identified any aggravating or ameliorating factors for his chest pain. In the emergency room he was found to have an EKG which was negative for acute myocardial ischemia or injury. His initial troponins were within normal limits. He was subsequently admitted to observation status on the telemetry unit for further evaluation and treatment. Hospital Course Hospital Course: Patient is an otherwise healthy 59-year-old male who is very active. He was admitted for evaluation of new onset chest pain. He denied any form of heavy lifting to precipitate such pain. He was seen by cardiology and was taken for stress test today. Chest x-ray was unremarkable. Troponins were negative. TSH was normal. His stress test also was completely normal without any evidence of ischemia. At this point, patient is cleared for discharge. I have started patient on atorvastatin for his hyperlipidemia with LDL of 146 and 10-year ASCVD risk calculated to be 9.5%. Patient is stable for discharge and should follow- up with his primary care provider and cardiology. Physical Exam Vital Signs: Temp Pulse Resp BP Pulse Ox 97.6 F 69 18 117/74 96 05/07/20 15:03 05/07/20 15:03 05/07/20 15:03 05/07/20 15:03 05/07/20 15:03 Intake & Output 05/06/20 05/07/20 05/08/20 06:59 06:59 06:59 Intake Total 0 Balance 0 Weight 83.6 kg General appearance: PRESENT: no acute distress, cooperative Neck exam: ABSENT: JVD Respiratory exam: PRESENT: clear to auscultation lia, symmetrical, unlabored. ABSENT: tachypnea, wheezes Cardiovascular exam: PRESENT: RRR, +S1, +S2. ABSENT: systolic murmur, tachycardia GI/Abdominal exam: PRESENT: soft. ABSENT: rebound, rigid, tenderness Neurological exam: PRESENT: alert, awake Results Laboratory Results: WBC 7.3 10^3/uL (4.0-10.5) 05/06/20 19:16 RBC 4.90 10^6/uL (4.35-5.55) 05/06/20 19:16 Hgb 14.7 g/dL (13.5-17.0) 05/06/20 19:16 Hct 42.6 % (37.9-51.0) 05/06/20 19:16 MCV 87 fl (80-97) 05/06/20 19:16 MCH 30.0 pg (27.0-33.4) 05/06/20 19:16 MCHC 34.5 g/dL (32.0-36.0) 05/06/20 19:16 RDW 14.0 % (11.5-14.0) 05/06/20 19:16 Plt Count 223 10^3/uL (150-450) 05/06/20 19:16 Lymph % (Auto) 27.7 % (13-45) 05/06/20 19:16 [place] % (Auto) 7.6 % (3-13) 05/06/20 19:16 Eos % (Auto) 5.4 % (0-6) 05/06/20 19:16 Baso % (Auto) 0.6 % (0-2) 05/06/20 19:16 Absolute Neuts (auto) 4.3 10^3/uL (1.7-8.2) 05/06/20 19:16 Absolute Lymphs (auto) 2.0 10^3/uL (0.5-4.7) 05/06/20 19:16 Absolute Monos (auto) 0.6 10^3/uL (0.1-1.4) 05/06/20 19:16 Absolute Eos (auto) 0.4 10^3/uL (0.0-0.6) 05/06/20 19:16 Absolute Basos (auto) 0.0 10^3/uL (0.0-0.2) 05/06/20 19:16 Seg Neutrophils % 58.7 % (42-78) 05/06/20 19:16 Sodium 137.3 mmol/L (137-145) 05/06/20 19:16 Potassium 4.0 mmol/L (3.6-5.0) 05/06/20 19:16 Chloride 104 mmol/L (98-107) 05/06/20 19:16 Carbon Dioxide 29 mmol/L (22-30) 05/06/20 19:16 Anion Gap 4 (5-19) L 05/06/20 19:16 BUN 19 mg/dL (7-20) 05/06/20 19:16 Creatinine 1.04 mg/dL (0.52-1.25) 05/06/20 19:16 Est GFR ( Amer) > 60 (>60) 05/06/20 19:16 Est GFR (MDRD) Non-Af > 60 (>60) 05/06/20 19:16 Glucose 88 mg/dL (75-110) 05/06/20 19:16 Calcium 8.6 mg/dL (8.4-10.2) 05/06/20 19:16 Total Bilirubin 0.8 mg/dL (0.2-1.3) 05/06/20 19:16 Direct Bilirubin 0.0 mg/dL (0.0-0.4) 05/06/20 19:16 Neonat Total Bilirubin Not Reportable 05/06/20 19:16 Neonat Direct Bilirubin Not Reportable 05/06/20 19:16 Neonat Indirect Bili Not Reportable 05/06/20 19:16 AST 27 U/L (17-59) 05/06/20 19:16 ALT 24 U/L (<50) 05/06/20 19:16 Alkaline Phosphatase 92 U/L (38-126) 05/06/20 19:16 Creatine Kinase 103 U/L (55-170) 05/07/20 11:00 CK-MB (CK-2) 1.11 ng/mL (<4.55) 05/07/20 11:00 Troponin I < 0.012 ng/mL 05/07/20 11:00 Total Protein 7.0 g/dL (6.3-8.2) 05/06/20 19:16 Albumin 4.2 g/dL (3.5-5.0) 05/06/20 19:16 Triglycerides 49 mg/dL (<150) 05/07/20 03:52 Cholesterol 210.04 mg/dL (0-200) H 05/07/20 03:52 LDL Cholesterol Direct 146 mg/dL (<100) H 05/07/20 03:52 VLDL Cholesterol 10.0 mg/dL (10-31) 05/07/20 03:52 HDL Cholesterol 49 mg/dL (>40) 05/07/20 03:52 TSH 4.40 uIU/mL (0.47-4.68) 05/07/20 03:52 05/06/20 05/06/20 05/07/20 19:16 22:15 03:52 CK-MB (CK-2) 1.68 1.21 Troponin I < 0.012 < 0.012 < 0.012 05/07/20 11:00 CK-MB (CK-2) 1.11 Troponin I < 0.012 Impressions: Chest X-Ray 05/06/20 19:01 IMPRESSION: NO ACUTE RADIOGRAPHIC FINDING IN THE CHEST. Plan Time Spent: Less than 30 Minutes Stroke Is this a Stroke Patient?: No Acute Heart Failure - Is this a Heart Failure Patient?: No
--- NOTE | 2020-05-07 16:46 | XCELERA REPORT ---
[address] [address] Transthoracic Echocardiogram Report Name: ELIU COLLAZO III Age: 59 yrs Gender: Male : 1960 Patient Status: Inpatient Patient Location: [facility]^A Study Date: 05/07/2020 02:33 PM Height: 71 in Weight: 184 lb BSA: 2.0 m2 Procedure: A complete two-dimensional transthoracic echocardiogram was performed (2D, M-mode, spectral and color flow Doppler). The study was technically adequate with some images being suboptimal in quality. Reason For Study: chest pain Ordering Physician: MALKA RAMIREZ Performed By: Neeru Reyes Interpretation Summary The left ventricle is normal in size, thickness and function. The left ventricular ejection fraction is normal. The Ejection Fraction estimate is 60-65%. Doppler measurements suggest normal left ventricular diastolic function. The left ventricular wall motion is normal. Trace AI, trace to mild TR. No prior studies for comparison. MMode/2D Measurements & Calculations RVDd: 3.5 cm LVIDd: 4.5 cm FS: 32.9 % Ao root diam: 2.7 cm IVSd: 1.0 cm LVIDs: 3.0 cm EDV(Teich): Ao root area: 94.0 ml LVPWd: 1.0 cm 5.7 cm2 ESV(Teich): LA dimension: 3.9 cm 36.2 ml EF(Teich): 61.5 % LVLd ap4: 8.0 cm SV(MOD-sp4): EDV(MOD-sp4): 48.0 ml 79.0 ml LVLs ap4: 6.6 cm ESV(MOD-sp4): 31.0 ml EF(MOD-sp4): 60.8 % Doppler Measurements & Calculations MV E max kelly: MV P1/2t max kelly: Ao V2 max: LV V1 max P.9 cm/sec 86.4 cm/sec 105.6 cm/sec 3.1 mmHg MV A max kelly: MV P1/2t: 82.8 msec Ao max P.5 mmHg LV V1 max: 59.2 cm/sec 87.9 cm/sec MVA(P1/2t): 2.7 cm2 MV E/A: 1.5 MV dec slope: 305.5 cm/sec2 MV dec time: 0.27 sec PA V2 max: TR max kelly: MV P1/2t-pr_phl: 79.0 cm/sec 289.1 cm/sec 82.8 msec PA max PG: TR max P.4 mmHg 2.5 mmHg Left Ventricle The left ventricle is normal in size, thickness and function. The left ventricular ejection fraction is normal. The Ejection Fraction estimate is 60- 65%. Doppler measurements suggest normal left ventricular diastolic function. The left ventricular wall motion is normal. Right Ventricle The right ventricle is normal in size, thickness and function. The right ventricular systolic function is normal. Atria The right atrium is normal. The left atrial size is normal. There is no Doppler evidence for an interatrial shunt. Mitral Valve The mitral valve is normal in structure and function. There is no evidence of mitral valve prolapse. There is no mitral valve stenosis. There is no mitral regurgitation noted. Aortic Valve The aortic valve is normal in structure and functions normally. There is no aortic valve stenosis. There is a trace amount of aortic regurgitation. Tricuspid Valve The tricuspid valve is not well visualized, but is grossly normal. There is a trace to mild amount of tricuspid regurgitation. Pulmonic Valve The pulmonic valve is not well visualized. There is a trace or physiologic amount of pulmonic regurgitation. Great Vessels The inferior vena cava appeared small and collapsed with respiration (RAP 0-5 mmHg). : MALKA RAMIREZ Antonio
[2020-05-07 16:54] LABS: CREATINE KINASE MB 1.01 ng/mL (<4.55)
[2020-05-07 16:56] VITALS: BP 100/65
[2020-05-07 16:59] LABS: TROPONIN I < 0.012 ng/mL
== END 2020-05-07 17:23 | disposition home or self-care (01) ==
LOC: ER 18:15 → EH 05-07 01:05 → 5 05-07 02:27
PROVIDERS: ADMIT Emergency Medicine; ATTEND Internal Medicine
DX: R07.89 Other chest pain (principal); N40.0 Benign prostatic hyperplasia without lower urinary tract symptoms; E78.5 Hyperlipidemia, unspecified; R61 Generalized hyperhidrosis; Z29.8 Encounter for other specified prophylactic measures; H53.489 Generalized contraction of visual field, unspecified eye; M54.2 Cervicalgia; M25.512 Pain in left shoulder; M19.90 Unspecified osteoarthritis, unspecified site; Z87.01 Personal history of pneumonia (recurrent); Z79.82 Long term (current) use of aspirin; Z79.899 Other long term (current) drug therapy; Z86.69 Personal history of other diseases of the nervous system and sense organs; Z90.49 Acquired absence of other specified parts of digestive tract; Z87.891 Personal history of nicotine dependence
CPT/HCPCS: 93005; 99285; 36415 ×2; 82553 ×2; 82550 ×2; 84443; 85025; 80053; 84484 ×2; 80061; 93306; 93017; 71046; 78452; 93010; A9500; J1644; J2270; J3490; Q9969

== ENCOUNTER 2020-08-20 11:31 | Emergency (ER) | payer BC ==
[2020-08-20] MEDS ORDERED: KETOROLAC TROMETHAMINE INJ/PF 30 MG/1 ML SDV IV ONE (12:29)
--- NOTE | 2020-08-20 12:34 | ER Document Report ---
ED General - General Chief Complaint: Cough Stated Complaint: SHORTNESS OF BREATH/DIFFICUTY BREATHING Time Seen by Provider: 08/20/20 12:04 Primary Care Provider: VIRGINIA ECHEVARRIA FNP [Primary Care Provider] - Follow up as needed TRAVEL OUTSIDE OF THE [place] IN LAST 30 DAYS: No - HPI Notes: Patient is a 59-year-old male who presents to emergency department for evaluation of 10 days of cough and nasal congestion. He is also had a fever. He states that he has 3 members of his household that are known Covid positive. He had a test done, but for some technical reason it was not run. The patient was also treated with Zithromax and nebulizers, states that the nebulizer seemed to help short-term. He states overall he does not feel much better. He had a fever of 100.9 yesterday. He had a few episodes of diarrhea several days ago. He has not had a bowel movement since then. He complains of pain in his chest and back with coughing, he describes it as a soreness. No anosmia. No vomiting. - Related Data Allergies/Adverse Reactions: No Known Allergies Allergy (Verified 02/16/18 19:02) Home Medications: omeprazole, atorvastatin, aspirin Past Medical History - General Information source: Patient - Social History Smoking Status: Former Smoker Frequency of alcohol use: Occasional Drug Abuse: None Family History: DM, Malignancy - Malignant melanoma. denies: CAD, Hypertension - Past Medical History Cardiac Medical History: Reports: Hx Hypercholesterolemia Denies: Hx Atrial Fibrillation, Hx Coronary Artery Disease, Hx Heart Attack, Hx Hypertension Pulmonary Medical History: Reports: Hx Pneumonia - 5-6 years ago Denies: Hx Asthma, Hx Bronchitis, Hx COPD Neurological Medical History: Denies: Hx Cerebrovascular Accident, Hx Seizures Endocrine Medical History: Denies: Hx Diabetes Mellitus Type 1, Hx Diabetes Mellitus Type 2, Hx Hyperthyroidism, Hx Hypothyroidism Renal/ Medical History: Denies: Hx Peritoneal Dialysis GI Medical History: Reports: Hx Gastroesophageal Reflux Disease, Hx Hiatal Hernia. Denies: Hx Cirrhosis, Hx Crohn's Disease, Hx Hepatitis, Hx Ulcerative Colitis Musculoskeletal Medical History: Reports Hx Arthritis, Denies Hx Gout Skin Medical History: Denies Hx Eczema, Denies Hx Psoriasis Psychiatric Medical History: Denies: Hx Depression Infectious Medical History: Reports: Hx MRSA. Denies: Hx Hepatitis Past Surgical History: Reports: Hx Abdominal Surgery - colon resection post trauma, Hx Bowel Surgery, Hx Herniorrhaphy - Right inguinal, Hx Kidney (Renal Surgery) - L kidney, Hx Orthopedic Surgery - neck, L ankle, Other - Lipoma removed right hip x2, colonoscopy - Immunizations Hx Diphtheria, Pertussis, Tetanus Vaccination: Yes Review of Systems - Review of Systems Constitutional: No symptoms reported EENT: See HPI Cardiovascular: No symptoms reported Respiratory: See HPI Gastrointestinal: See HPI Genitourinary: No symptoms reported Musculoskeletal: See HPI Skin: No symptoms reported Neurological/Psychological: No symptoms reported -: Yes All other systems reviewed and negative Physical Exam - Vital signs Vitals: Temp Pulse Resp BP Pulse Ox 97.7 F 77 16 103/65 97 08/20/20 11:37 08/20/20 11:37 08/20/20 11:37 08/20/20 11:37 08/20/20 11:37 - Notes Notes: This is a 59-year-old male who appears stated age, no acute distress. He is a dry and hacking cough. Vital signs reviewed, please refer to chart. Head is normocephalic, atraumatic. Pupils equal round, reactive to light. Neck is supple without meningismus. Heart is regular rate and rhythm. Lungs are clear to auscultation bilaterally. Abdomen is soft, nontender, normoactive bowel sounds throughout. Extremities without cyanosis, clubbing. Posterior calves are nontender. Peripheral pulses are equal. Skin is warm and dry. Patient is awake, alert, neurological exam is nonfocal. Course - Re-evaluation Re-evalutation: 08/20/20 12:33 Patient presents to the emergency department for evaluation. He has upper respiratory symptoms, dry and hacking cough, fevers, body aches. He has been exposed to multiple COVID-19 patients. It occurs to me that the patient likely has COVID-19. The patient would like another test performed. I will also test him for influenza. We have a chest x-ray ordered. Otherwise his vitals are stable, his lungs are clear. Patient is stable at this time. 08/20/20 13:37 Patient remained stable. On further questioning the patient just finished his Zithromax yesterday. His findings are positive for pneumonia, but I strongly suspect is a viral pneumonia caused by COVID-19. I will send him home with more symptomatic medications. He is to follow-up with his primary care provider next week. Covid test is still pending. He is to return to the ED with worsening or new concerning symptoms of any sort. 08/20/20 13:43 Notified that patient could not tolerate Covid test. It does not change disposition. - Vital Signs Vital signs: Temp Pulse Resp BP Pulse Ox 97.7 F 77 16 103/65 97 08/20/20 11:37 08/20/20 11:37 08/20/20 11:37 08/20/20 11:37 08/20/20 11:37 - Diagnostic Test Radiology reviewed: Image reviewed, Reports reviewed Radiology results interpreted by me: 08/20/20 13:38 Chest X-Ray 08/20/20 12:28 IMPRESSION: Low lung volumes with focal asymmetric airspace disease in the periphery of the right upper lobe. Minimal left basilar atelectasis. Discharge - Discharge Clinical Impression: Viral pneumonia Condition: Stable Disposition: HOME, SELF-CARE Instructions: COVID-19 Guidance for Persons Under Investigation, Fever ([facility]), Viral Pneumonia ([facility]), Viral Syndrome ([facility]) Prescriptions: Ipratropium/Albuterol Sulfate [Duoneb 3 ml Ampul] 3 ml NEB Q6HP PRN #30 vial.neb PRN Reason: dyspnea Promethazine HCl/Codeine [Prometh-Codein 6.25-10 mg/5 ml] 5 ml PO TIDP PRN #60 syrup PRN Reason: Referrals: VIRGINIA ECHEVARRIA FNP [Primary Care Provider] - Follow up as needed
--- NOTE | 2020-08-20 12:50 | RADIOLOGY REPORT (SQ) ---
EXAM DESCRIPTION: CHEST SINGLE VIEW IMAGES COMPLETED DATE/TIME: 08/20/2020 12:42 pm REASON FOR STUDY: cough COMPARISON: 05/06/2020 EXAM PARAMETERS: NUMBER OF VIEWS: One view. TECHNIQUE: Single frontal radiographic view of the chest acquired. RADIATION DOSE: NA LIMITATIONS: Low lung volumes. FINDINGS: LUNGS AND PLEURA: Patchy infiltrate in the periphery of the right upper lobe. There is at electasis in the left base. No pneumothorax. No definite effusion. MEDIASTINUM AND HILAR STRUCTURES: No masses. Contour normal. HEART AND VASCULAR STRUCTURES: Heart normal in size. Normal vasculature. BONES: No acute findings. HARDWARE: None in the chest. OTHER: No other significant finding. IMPRESSION: Low lung volumes with focal asymmetric airspace disease in the periphery of the right up per lobe. Minimal left basilar atelectasis. TECHNICAL DOCUMENTATION: JOB ID: [id number] [employer]- All Rights Reserved Reading location - IP/workstation name: [email or web address]
[2020-08-20 13:27] LABS: A TYPE INFLUENZA AG NEGATIVE (NEGATIVE); B INFLUENZA AG NEGATIVE (NEGATIVE)
[2020-08-20 13:53] VITALS: BP 119/83
== END 2020-08-20 13:53 | disposition home or self-care (01) ==
LOC: ER 11:31
DX: J12.9 Viral pneumonia, unspecified (principal); R06.02 Shortness of breath; E78.00 Pure hypercholesterolemia, unspecified; Z20.828 Contact with and (suspected) exposure to other viral communicable diseases; Z86.14 Personal history of Methicillin resistant Staphylococcus aureus infection
CPT/HCPCS: 99284; 96374; 87804; 71045; J1885